=== PATIENT | male | born 1980 | race Two or more races ===

== ENCOUNTER 2024-02-28 08:01 | Day surgery (SDC) | payer BC, MEDICAID ==
[2024-02-22 10:44] LABS: BASOPHILS # (AUTO) 0.2 X10'3 (0-0.2); EOSINOPHILS # (AUTO) 1.5 X10'3 (0-0.9); EOSINOPHILS % (AUTO) 20.3 % (0-6); LYMPHOCYTES # (AUTO) 1.5 X10'3 (1.1-4.8); LYMPHOCYTES % (AUTO) 19.9 % (21-51); MEAN CORPUSCULAR HEMOGLOBIN 29.5 PG (27.0-31.0); MEAN CORPUSCULAR VOLUME 86.8 FL (78-98); MEAN PLATELET VOLUME 7.8 FL (7.4-10.4); MONOCYTES # (AUTO) 0.6 X10'3 (0-0.9); MONOCYTES % (AUTO) 7.9 % (2-12); NEUTROPHILS # (AUTO) 3.7 X10'3 (1.8-7.7); NEUTROPHILS % (AUTO) 49.9 % (42-75); PRE OP HEMATOCRIT 44.3 % (42.0-52.0); PRE OP HEMOGLOBIN 15.1 g/dL (14.0-17.9); PRE OP PLATELET COUNT 288 X10'3 (140-440); PRE OP WHITE BLOOD COUNT 7.5 10'3 (4.8-10.8); RED CELL DISTRIBUTION WIDTH 13.7 % (11.5-14.5)
[2024-02-22 10:55] LABS: ALBUMIN/GLOBULIN RATIO 0.5 (1.1-1.5); ALKALINE PHOSPHATASE 81 IU/L (46-116); BLOOD UREA NITROGEN 10 MG/DL (7-18); BUN/CREATININE RATIO 7.7 (10.0-20.0); CALCIUM 9.1 MG/DL (8.5-10.1); CHLORIDE 100 MMOL/L (99-107); PRE OP ALT 28 U/L (30-65); PRE OP ANION GAP 7 (8-16); PRE OP AST 16 U/L (10-37); PRE OP BILIRUB, TOTAL 0.6 MG/DL (0.0-1.0); PRE OP POTASSIUM 4.4 MMOL/L (3.4-5.1); PRE OP SODIUM 136 MMOL/L (135-145); TOTAL CARBON DIOXIDE 28.7 MMOL/L (24-32); TOTAL PROTEIN 8.5 G/DL (6.4-8.2); eGFR 59 ML/MIN
[2024-02-22 11:05] LABS: PRE OP GLUCOSE 248 MG/DL (70-104)
[2024-02-22 11:16] LABS: PLATELET ESTIMATE NORMAL; TOTAL CELLS COUNTED 100
[2024-02-22 11:17] LABS: GIANT PLATELET FEW
[2024-02-22 13:25] LABS: HEMOGLOBIN A1C 7.6 % (4.5-6.2)
[~2024-02-28] VITALS: Ht 177.8 cm; Wt 118.3 kg
[2024-02-28] VITALS (8 sets, daily range): BP systolic 96–126; BP diastolic 62–97; PULSE 73–89; RESP 9–16; TEMP 97.9; O2SAT 94–99
[2024-02-28] MEDS: clindamycin-Cleocin 900mg/D5W 50 ML IV ONE (05:30)
[~2024-02-28 08:01] MED LIST: ALBU8HFA INH; GABA-530 PO; IBUP-1985 PO; IBUP-1986 PO; OMEP20TA23 PO; SHILAJIT
[2024-02-28] MEDS ORDERED: labetalol 20mg/4ml (5mg/ml) syringe IV PRN (09:15)
[2024-02-28] MEDS ORDERED: ringers solution, lacted 1,000 ML IV SCH (09:15)
[2024-02-28] MEDS ORDERED: morphine 2 MG/ML inj. syringe IV PRN (09:15)
[2024-02-28] MEDS ORDERED: morphine 4 MG/ML inj SYRINge IV PRN (09:15)
[2024-02-28] MEDS ORDERED: ondansetron/PF 4mg/2ml inj IV PRN (09:15)
[2024-02-28] MEDS ORDERED: IBUPROFEN PO (09:16)
[2024-02-28] MEDS: famotidine 20mg tablet PO ONE (09:17)
[2024-02-28] MEDS: ringers solution, lacted 1,000 ML IV SCH (09:19)
[2024-02-28] MEDS ORDERED: fentaNYL/PF 50MCG/1 ML 2ML syringe ONE ×2 (09:58→10:49)
[2024-02-28] MEDS ORDERED: MIDAZolam 1 MG/ML 5ML VIAL ONE (09:58)
[2024-02-28] MEDS ORDERED: propofol 10mg/ml 20ml vial IV ONE (10:30)
[2024-02-28] MEDS ORDERED: flumazenil 0.1 mg/ml inj. 10mL vial IV ONE (11:00)
[2024-02-28] MEDS: BUPIVAcaine/PF 2.5mg/ml (0.25%) 10ml vial ONE (14:32)
[2024-02-28] MEDS: LIDOcaine 2% (20mg/ml) 5ml vial ONE (14:33)
== END 2024-02-28 11:55 | disposition home or self-care (01) ==
LOC: PAS 08:01
PROVIDERS: ATTEND Orthopaedic Surgery Hand Surgery
DX: G56.03 Carpal tunnel syndrome, bilateral upper limbs (principal); E11.9 Type 2 diabetes mellitus without complications; E66.9 Obesity, unspecified; K21.9 Gastro-esophageal reflux disease without esophagitis; J45.909 Unspecified asthma, uncomplicated; Z86.73 Personal history of transient ischemic attack (TIA), and cerebral infarction without residual deficits; Z87.891 Personal history of nicotine dependence; Z79.1 Long term (current) use of non-steroidal anti-inflammatories (NSAID); Z79.899 Other long term (current) drug therapy; Z68.37 Body mass index [BMI] 37.0-37.9, adult; Z88.0 Allergy status to penicillin; Z83.3 Family history of diabetes mellitus; Z82.49 Family history of ischemic heart disease and other diseases of the circulatory system; Z82.5 Family history of asthma and other chronic lower respiratory diseases
CPT/HCPCS: 29848; 36415; 80053; 82948; 83036; 85025; 93005; J2250; J2704; J3010; J3490; J7030; J7120; Z7506; Z7512; 85007; A4215; A6449; A7000

== ENCOUNTER 2024-09-15 09:40 | Outpatient (CLI) | payer BC, MEDICAID ==
[~2024-09-15 09:40] MED LIST changes: -IBUP-1985 PO; -IBUP-1986 PO; +IBUPROFEN PO
== END 2024-09-15 23:59 | disposition home or self-care (01) ==
LOC: RAD 09:40
PROVIDERS: ATTEND Family Medicine
DX: R13.10 Dysphagia, unspecified (principal); E11.9 Type 2 diabetes mellitus without complications; K21.9 Gastro-esophageal reflux disease without esophagitis; Z79.52 Long term (current) use of systemic steroids; Z79.84 Long term (current) use of oral hypoglycemic drugs
CPT/HCPCS: 74230